=== PATIENT | female | born 1995 | race American Indian/Alaskan Native ===

== ENCOUNTER 2017-10-22 21:01 | Inpatient (IN) | payer MEDICAID ==
[2017-10-22] MEDS ORDERED: PITOCin/NS 20 UNIT/1000ML DRIP 20,000 MILLIUNITS/1,000 ML BAG IV ONE (21:08)
[2017-10-22] MEDS ORDERED: XYLOCAINE 2% INFILTRATI ONE ×2 (21:09→21:28)
--- NOTE | 2017-10-22 21:22 | History and Physical Report ---
History of Present Illness Date of examination: 10/22/17 Date of admission: 10/22/17 21:04 Chief complaint: Labor History of present illness: Pt is a 22yo BF EDC 10/29/17; EGA 39 0/7 weeks presents to L&D complaining of SROM clear fluid since 10AM with RUC's q 2-3 mins and now Cx 10/ 100/V/+2 She received care at [facility]; however records are not available and GBS is unknown. Past History Past Medical History: no pertinent history Past Surgical History: no surgical history Family/Genetic History: none Social history: no significant social history, single - Obstetrical History Expected Date of Delivery: 10/29/17 Actual Gestation: 39 Week(s) 0 Day(s) Medications and Allergies Allergies Allergy/AdvReac Type Severity Reaction Status Date / Time tramadol Allergy Unknown Verified 10/22/17 21:34 Review of Systems All systems: negative - Vital Signs Vital signs: Vital Signs Pulse BP 79 138/82 10/22/17 21:16 10/22/17 21:16 Temp Pulse Resp BP Pulse Ox 79 138/82 10/22/17 21:16 10/22/17 21:16 - Physical Exam Breasts: Positive: deferred Cardiovascular: Regular rate Lungs: Positive: Clear to auscultation Abdomen: Positive: normal appearance Genitourinary (Female): Positive: normal external genitalia Vagina: Positive: normal moisture Uterus: Positive: enlarged Extremities: Positive: normal - Obstetrical FHR: category 1 Uterine Contraction Monitor Mode: External Cervical Dilatation: 10 Cervical Effacement Percentage: 100 station: +2 Uterine Contraction Pattern: Regular Uterine Tone Measurement Phase: Contraction Uterine Contraction Intensity: Strong/Firm Results All other labs normal. Assessment and Plan - Patient Problems (1) 39 weeks gestation of Onset Date: 10/22/17 Current Visit: Yes Status: Acute Plan to address problem: A: IUP @ 39 0/7 weeks in labor P: Admit to L&D for imminent delivery Will obtain records tomorrow. (2) Precipitate labor Onset Date: 10/22/17 Current Visit: Yes Status: Acute
--- NOTE | 2017-10-22 21:27 | Procedure Note ---
OB Delivery Note - Delivery Date of Delivery: 10/22/17 Surgeon: ZANDER GARCIA Estimated blood loss: other (150cc) - Vaginal Delivery presentation: vertex Delivery position: OA Intrapartum events: none, precipitous labor- <3hr Delivery induction: none Delivery augmentation: rupture of membranes Delivery monitor: external FHT, external uterine Route of delivery: Delivery placenta: spontaneous Delivery cord: nuchal cord, 3 umbilical vessels Episiotomy: none Delivery laceration: none Anesthesia: none Delivery comments: delivered OA and placed on Mom's chest for [id number] bonding and delayed cord clamping. - Infant A at 1 minute: 8 at 5 minutes: 9 Infant Gender: Male (3237gms)
[2017-10-22] MEDS ORDERED: ePHEDrine SULFATE IV PRN (21:28)
[2017-10-22] MEDS ORDERED: BRETHINE SUB-Q PRN (21:28)
[2017-10-22] MEDS ORDERED: MINERAL OIL PO PRN (21:28)
[2017-10-22] MEDS ORDERED: BRETHINE IVP PRN (21:28)
[2017-10-22] MEDS ORDERED: TUCKS PAD TP PRN (21:30)
[2017-10-22] MEDS ORDERED: DULCOLAX PR PRN (21:30)
[2017-10-22] MEDS ORDERED: NORCO 5/325 PO PRN (21:30)
[2017-10-22] MEDS ORDERED: ZOFRAN IV PRN (21:30)
[2017-10-22] MEDS ORDERED: PHENERGAN PO PRN (21:30)
[2017-10-22] MEDS ORDERED: BENADRYL PO PRN (21:30)
[2017-10-22] MEDS ORDERED: MILK OF MAGNESIA PO PRN (21:30)
[2017-10-22] MEDS ORDERED: PHENERGAN PR PRN (21:30)
[2017-10-22] MEDS ORDERED: TYLENOL PO PRN (21:30)
[2017-10-22] MEDS ORDERED: LANSINOH TP PRN (21:30)
[2017-10-22] MEDS ORDERED: PITOCin/NS 30 UNIT/500ML 30 UNITS/500 ML BAG IV SCH (22:00)
[2017-10-22] MEDS ORDERED: PITOCin/NS 20 UNIT/1000ML DRIP 20 UNITS/1,000 ML BAG IV SCH ×2 (22:00)
[2017-10-22] MEDS ORDERED: SODIUM CHLORIDE FLUSH SYRINGE 10 ML IV NR (22:00)
[2017-10-22] MEDS ORDERED: LACTATED RINGERS 1,000 ML IV SCH (22:00)
[2017-10-22 22:15] LABS: Hematocrit 38.2 % (30.3-42.9); Hemoglobin 12.5 gm/dl (10.1-14.3); Mean Corpuscular HGB Conc 33 % (30-34); Mean Corpuscular Hemoglobin 28 pg (28-32); Mean Corpuscular Volume 85 fl (79-97); Platelet Count 193 K/mm3 (140-440); Red Blood Count 4.47 M/mm3 (3.65-5.03); Red Cell Distribution Width 15.5 % (13.2-15.2)
[2017-10-22 22:43] LABS: HIV-1 Antigen p24 Non React (Non React); HIVR-1/2 Ab Non React (Non React)
[2017-10-22 22:51] LABS: Basophils % (Manual) 0 % (0.0-1.8); Blastocytes % (Manual) 0 %; Eosinophils % (Manual) 0 % (0.0-4.3); RBC Morphology Normal
[2017-10-22 22:52] LABS: Diff Status Complete
[2017-10-22] MEDS: MOTRIN PO SCH (23:44)
[2017-10-23 02:47] LABS: Urine Drugs of Abuse Note Disclamer
[2017-10-23 03:08] LABS: Bilirubin,Urine NEG (Negative); Blood,Urine LG (Negative); Ketones,Urine 20 mg/dL (Negative); Leukocyte Esterase,Urine SM (Negative); Nitrite,Urine NEG (Negative); Urobilinogen,Urine < 2.0 mg/dL (<2.0)
[2017-10-23 03:12] LABS: RBC,Urine > 182.0 /HPF (0.0-6.0); WBC,Urine < 1.0 /HPF (0.0-6.0)
[2017-10-23] MEDS ORDERED: BOOSTRIX IM ONE (06:00)
[2017-10-23] MEDS ORDERED: M-M-R II VACCINE SUB-Q ONE (06:00)
[2017-10-23] MEDS: MOTRIN PO SCH ×3 (06:18→17:55)
--- NOTE | 2017-10-23 09:19 | Progress Note ---
Assessment and Plan - Patient Problems (1) 39 weeks gestation of Onset Date: 10/22/17 Current Visit: Yes Status: Resolved (2) Precipitate labor Onset Date: 10/22/17 Current Visit: Yes Status: Resolved (3) (normal spontaneous vaginal delivery) Onset Date: 10/23/17 Current Visit: Yes Status: Resolved Plan to address problem: A: S/P - PPD #1 Doing well P: May go home tomorrow Subjective - Subjective Date of service: 10/23/17 Principal diagnosis: s/p - PPD #1 Interval history: Pt is feeling well without complaints. Bleeding improved. Patient reports: appetite normal, voiding normally, pain well controlled, flatus , ambulating normally [place]: doing well, bottle feeding Objective - Vital Signs Latest vital signs: Vital Signs Temp Pulse Resp BP BP 10/23/17 04:15 98.6 F 71 18 112/68 10/23/17 00:00 98.6 F 79 18 106/64 10/22/17 23:44 18 10/22/17 23:16 59 L 125/72 10/22/17 23:01 63 139/79 10/22/17 22:46 76 125/80 10/22/17 22:31 72 132/78 10/22/17 22:16 60 130/74 10/22/17 22:01 65 134/79 10/22/17 21:46 74 142/84 10/22/17 21:31 78 143/90 10/22/17 21:28 72 140/85 10/22/17 21:16 79 138/82 Intake and Output 10/22/17 10/23/17 10/23/17 22:59 06:59 14:59 Output Total 2200 Balance -2200 Output: Urine 2200 Void 2200 Other: Total, Output Amount 800 # Voids Void 1 Weight 117.027 kg Estimated Blood Loss 100 - Exam Breasts: Present: deferred Cardiovascular: Present: Regular rate Lungs: Present: Clear to auscultation Abdomen: Present: normal appearance, soft Uterus: Present: normal, firm, fundal height below umbilicus Extremities: Present: normal - Labs Labs: Abnormal lab results 10/22/17 Range/Units 21:43 RDW 15.5 H (13.2-15.2) % Lymphocytes % (Manual) 39.0 H (13.4-35.0) % Laboratory Tests 10/22/17 10/22/17 10/22/17 21:43 21:43 21:43 WBC 10.0 RBC 4.47 Hgb 12.5 Hct 38.2 MCV 85 MCH 28 MCHC 33 RDW 15.5 H Plt Count 193 Lymph # Campus Coordinator Add Manual Diff Complete Total Counted 100 Seg Neuts % (Manual) 54.0 Band Neutrophils % 0 Lymphocytes % (Manual) 39.0 H Reactive Lymphs % (Man) 0 Monocytes % (Manual) 7.0 Eosinophils % (Manual) 0 Basophils % (Manual) 0 Metamyelocytes % 0 Myelocytes % 0 Promyelocytes % 0 Blast Cells % 0 Nucleated RBC % Not Reportable Seg Neutrophils # Man 5.4 Band Neutrophils # 0.0 Lymphocytes # (Manual) 3.9 Abs React Lymphs (Man) 0.0 Monocytes # (Manual) 0.7 Eosinophils # (Manual) 0.0 Basophils # (Manual) 0.0 Metamyelocytes # 0.0 Myelocytes # 0.0 Promyelocytes # 0.0 Blast Cells # 0.0 WBC Morphology Not Reportable Hypersegmented Neuts Not Reportable Hyposegmented Neuts Not Reportable Hypogranular Neuts Not Reportable Smudge Cells Not Reportable Toxic Granulation Not Reportable Toxic Vacuolation Not Reportable Dohle Bodies Not Reportable Pelger-Huet Anomaly Not Reportable Negin Rods Not Reportable Platelet Estimate Appears normal Clumped Platelets Not Reportable Plt Clumps, EDTA Not Reportable Large Platelets Not Reportable Giant Platelets Not Reportable Platelet Satelliting Not Reportable Plt Morphology Comment Not Reportable RBC Morphology Normal Dimorphic RBCs Not Reportable Polychromasia Not Reportable Hypochromasia Not Reportable Poikilocytosis Not Reportable Anisocytosis Not Reportable Microcytosis Not Reportable Macrocytosis Not Reportable Spherocytes Not Reportable Pappenheimer Bodies Not Reportable Sickle Cells Not Reportable Target Cells Not Reportable Tear Drop Cells Not Reportable Ovalocytes Not Reportable Helmet Cells Not Reportable [place] Bodies Not Reportable [place] Rings Not Reportable [place] Cells Not Reportable Bite Cells Not Reportable Crenated Cell Not Reportable Elliptocytes Not Reportable Acanthocytes (Spur) Not Reportable Rouleaux Not Reportable Hemoglobin C Crystals Not Reportable Schistocytes Not Reportable Malaria parasites Not Reportable Sickle Cell Screen Pascual Bodies Not Reportable Hem Pathologist Commnt No Urine Color Urine Turbidity Urine pH Ur Specific [place] Urine Protein Urine Glucose (UA) Urine Ketones Urine Blood Urine Nitrite Urine Bilirubin Urine Urobilinogen Ur Leukocyte Esterase Urine WBC (Auto) Urine RBC (Auto) Urine Opiates Screen Urine Methadone Screen Ur Barbiturates Screen Ur Phencyclidine Scrn Ur Amphetamines Screen U Benzodiazepines Scrn Urine Cocaine Screen U Marijuana (THC) Screen Drugs of Abuse Note Hep Bs Antigen Non-reactive HIV 1&2 Antibody Rapid HIV P24 Antigen Blood Type O POSITIVE Antibody Screen Negative 10/22/17 10/22/17 10/22/17 21:43 Unknown Unknown WBC RBC Hgb Hct MCV MCH MCHC RDW Plt Count Lymph # Add Manual Diff Total Counted Seg Neuts % (Manual) Band Neutrophils % Lymphocytes % (Manual) Reactive Lymphs % (Man) Monocytes % (Manual) Eosinophils % (Manual) Basophils % (Manual) Metamyelocytes % Myelocytes % Promyelocytes % Blast Cells % Nucleated RBC % Seg Neutrophils # Man Band Neutrophils # Lymphocytes # (Manual) Abs React Lymphs (Man) Monocytes # (Manual) Eosinophils # (Manual) Basophils # (Manual) Metamyelocytes # Myelocytes # Promyelocytes # Blast Cells # WBC Morphology Hypersegmented Neuts Hyposegmented Neuts Hypogranular Neuts Smudge Cells Toxic Granulation Toxic Vacuolation Dohle Bodies Pelger-Huet Anomaly Negin Rods Platelet Estimate Clumped Platelets Plt Clumps, EDTA Large Platelets Giant Platelets Platelet Satelliting Plt Morphology Comment RBC Morphology Dimorphic RBCs Polychromasia Hypochromasia Poikilocytosis Anisocytosis Microcytosis Macrocytosis Spherocytes Pappenheimer Bodies Sickle Cells Target Cells Tear Drop Cells Ovalocytes Helmet Cells [place] Bodies [place] Rings [place] Cells Bite Cells Crenated Cell Elliptocytes Acanthocytes (Spur) Rouleaux Hemoglobin C Crystals Schistocytes Malaria parasites Sickle Cell Screen Negative Pascual Bodies Hem Pathologist Commnt Urine Color Red Urine Turbidity Clear Urine pH 6.0 Ur Specific [place] 1.026 Urine Protein 100 mg/dl Urine Glucose (UA) Neg Urine Ketones 20 Urine Blood Lg Urine Nitrite Neg Urine Bilirubin Neg Urine Urobilinogen < 2.0 Ur Leukocyte Esterase Sm Urine WBC (Auto) < 1.0 Urine RBC (Auto) > 182.0 Urine Opiates Screen Presumptive negative Urine Methadone Screen Presumptive negative Ur Barbiturates Screen Presumptive negative Ur Phencyclidine Scrn Presumptive negative Ur Amphetamines Screen Presumptive negative U Benzodiazepines Scrn Presumptive negative Urine Cocaine Screen Presumptive negative U Marijuana (THC) Screen Presumptive negative Drugs of Abuse Note Disclamer Hep Bs Antigen HIV 1&2 Antibody Rapid Non react HIV P24 Antigen Non react Blood Type Antibody Screen 10/23/17 09:34 WBC RBC Hgb 10.9 Hct 33.2 MCV MCH MCHC RDW Plt Count Lymph # Add Manual Diff Total Counted Seg Neuts % (Manual) Band Neutrophils % Lymphocytes % (Manual) Reactive Lymphs % (Man) Monocytes % (Manual) Eosinophils % (Manual) Basophils % (Manual) Metamyelocytes % Myelocytes % Promyelocytes % Blast Cells % Nucleated RBC % Seg Neutrophils # Man Band Neutrophils # Lymphocytes # (Manual) Abs React Lymphs (Man) Monocytes # (Manual) Eosinophils # (Manual) Basophils # (Manual) Metamyelocytes # Myelocytes # Promyelocytes # Blast Cells # WBC Morphology Hypersegmented Neuts Hyposegmented Neuts Hypogranular Neuts Smudge Cells Toxic Granulation Toxic Vacuolation Dohle Bodies Pelger-Huet Anomaly Negin Rods Platelet Estimate Clumped Platelets Plt Clumps, EDTA Large Platelets Giant Platelets Platelet Satelliting Plt Morphology Comment RBC Morphology Dimorphic RBCs Polychromasia Hypochromasia Poikilocytosis Anisocytosis Microcytosis Macrocytosis Spherocytes Pappenheimer Bodies Sickle Cells Target Cells Tear Drop Cells Ovalocytes Helmet Cells [place] Bodies [place] Rings [place] Cells Bite Cells Crenated Cell Elliptocytes Acanthocytes (Spur) Rouleaux Hemoglobin C Crystals Schistocytes Malaria parasites Sickle Cell Screen Pascual Bodies Hem Pathologist Commnt Urine Color Urine Turbidity Urine pH Ur Specific [place] Urine Protein Urine Glucose (UA) Urine Ketones Urine Blood Urine Nitrite Urine Bilirubin Urine Urobilinogen Ur Leukocyte Esterase Urine WBC (Auto) Urine RBC (Auto) Urine Opiates Screen Urine Methadone Screen Ur Barbiturates Screen Ur Phencyclidine Scrn Ur Amphetamines Screen U Benzodiazepines Scrn Urine Cocaine Screen U Marijuana (THC) Screen Drugs of Abuse Note Hep Bs Antigen HIV 1&2 Antibody Rapid HIV P24 Antigen Blood Type Antibody Screen
[2017-10-23] MEDS ORDERED: PRENATAL VITAMIN PO SCH (10:00)
[2017-10-23 10:05] LABS: Hematocrit 33.2 % (30.3-42.9); Hemoglobin 10.9 gm/dl (10.1-14.3)
--- NOTE | 2017-10-23 11:00 | Discharge Summary ---
Providers - Providers Date of Admission: 10/22/17 21:04 Date of discharge: 10/24/17 Attending physician: ZANDER GARCIA Primary care physician: ZANDER GARCIA Hospitalization Reason for admission: active labor, rupture of membranes, IUP at term Delivery: Episiotomy: none Laceration: none Other procedures: none complications: none Discharge diagnosis: IUP at term delivered [place] baby: male Hospital course: Unremarkable. Condition at discharge: Good Disposition: DC-01 TO HOME OR SELFCARE - Discharge Diagnoses (1) 39 weeks gestation of Status: Resolved (2) Precipitate labor Status: Resolved (3) (normal spontaneous vaginal delivery) Status: Resolved Plan - Discharge Medications Prescriptions: Ferrous Sulfate [Feosol 325 MG tab] 325 mg PO BID #60 tablet Ibuprofen [Motrin 600 MG tab] 600 mg PO Q6H #30 tablet Vit-Fe Fumar-FA [ Vitamin] 1 each PO QDAY #30 tablet - Provider Discharge Summary Activity: routine, no sex for 6 weeks, no heavy lifting 4 weeks, no strenuous exercise Diet: routine Instructions: routine Additional instructions: [] Smoking cessation referral if applicable(refer to patient education folder for contact #) [] Refer to [facility]'s [facility] Book[facility] Call your doctor immediately for: * Fever > 100.5 * Heavy vaginal bleeding ( >1 pad per hour) * Severe persistent headache * Shortness of breath * Reddened, hot, painful area to leg or breast * Drainage or odor from incision. * Keep incision clean and dry at all times and follow doctor's instructions regarding bathing/showering - Follow up plan Follow up: ZANDER GARCIA MD [Primary Care Provider] - 6 Weeks
[2017-10-23] MEDS: COLACE PO SCH ×2 (17:55→22:30)
[2017-10-23] MEDS: FEOSOL PO SCH ×2 (17:55→22:29)
[2017-10-24] MEDS: MOTRIN PO SCH ×3 (00:34→12:40)
[2017-10-24] MEDS: COLACE PO SCH (12:40)
[2017-10-24] MEDS: FEOSOL PO SCH (12:40)
[2017-10-24 19:16] VITALS: BP 137/80
== END 2017-10-24 17:35 | disposition home or self-care (01) | DRG 775 ==
LOC: TRG 21:01 → LD 21:03 → TRG 21:04 → OB 23:57
PROVIDERS: ADMIT Obstetrics & Gynecology; ATTEND Obstetrics & Gynecology
PROC: 10E0XZZ Delivery of Products of Conception, External Approach (ICD-10-PCS; principal; 2017-10-22)
PROC: 3E0234Z Introduction of Serum, Toxoid and Vaccine into Muscle, Percutaneous Approach (ICD-10-PCS; 2017-10-23)
DX: O62.3 Precipitate labor (principal); Z3A.39 39 weeks gestation of pregnancy; Z37.0 Single live birth; Z23 Encounter for immunization; Z88.5 Allergy status to narcotic agent; O69.81X0 Labor and delivery complicated by cord around neck, without compression, not applicable or unspecified
CPT/HCPCS: 36415; 80307; 81001; 85007; 85014; 85018; 85025; 85660; 86592; 86706; 86850; 86900; 86901; 87806; J2590

== ENCOUNTER 2018-02-26 00:22 | Emergency (ER) | payer MEDICAID ==
[2018-02-26 01:16] LABS: Basophils % (Auto) 0.4 % (0.0-1.8); Eosinophils # (Auto) 0.1 K/mm3 (0.0-0.4); Eosinophils % (Auto) 1.9 % (0.0-4.3); Hemoglobin 11.9 gm/dl (10.1-14.3); Lymphocytes # (Auto) 2.2 K/mm3 (1.2-5.4); Lymphocytes % (Auto) 43.4 % (13.4-35.0); Mean Corpuscular HGB Conc 32 % (30-34); Mean Corpuscular Hemoglobin 27 pg (28-32); Mean Corpuscular Volume 84 fl (79-97); Monocytes # (Auto) 0.4 K/mm3 (0.0-0.8); Monocytes % (Auto) 6.9 % (0.0-7.3); Platelet Count 216 K/mm3 (140-440); Red Blood Count 4.43 M/mm3 (3.65-5.03); Red Cell Distribution Width 14.6 % (13.2-15.2)
[2018-02-26 02:34] LABS: Bilirubin,Urine NEG (Negative); Blood,Urine NEG (Negative); Color,Urine Yellow (Yellow); Mucus,Urine FEW /HPF; Protein,Urine <15 mg/dL mg/dL (Negative); Urobilinogen,Urine < 2.0 mg/dL (<2.0)
--- NOTE | 2018-02-26 04:12 | Emergency Department Report ---
HPI - General Chief Complaint: Vaginal Bleeding Time Seen by Provider: 02/26/18 03:23 - HPI HPI: The patient's 22-year-old female presents for evaluation of abdominal pain vaginal bleeding. The patient reports constant vaginal bleeding and abdominal pain for the past 2 days, crampy in quality, concentrated to the lower abdomen, worsened with position changes. The patient denies trauma to the abdomen or pelvis, fever, chills, night sweats, diarrhea, blood in the stool, dark tarry stool, dysuria, hematuria, flank pain, genital discharge, inability to pass flatus. ED Past Medical Hx - Past Medical History Previous Medical History?: No Hx Hypertension: No Hx Congestive Heart Failure: No Hx Diabetes: No Hx Deep Vein Thrombosis: No Hx Renal Disease: No Hx Sickle Cell Disease: No Hx Seizures: No Hx Asthma: No Hx COPD: No Hx HIV: No - Surgical History Past Surgical History?: No - Social History Smoking Status: Never Smoker - Medications Home Medications: Home Medications Medication Instructions Recorded Confirmed Last Taken Type Ferrous Sulfate [Feosol 325 MG tab] 325 mg PO BID #60 tablet 10/23/17 Unknown Rx Ibuprofen [Motrin 600 MG tab] 600 mg PO Q6H #30 tablet 10/23/17 Unknown Rx Vit-Fe Fumar-FA [ 1 each PO QDAY #30 tablet 10/23/17 Unknown Rx Vitamin] medroxyPROGESTERone ACETATE 5 mg PO QDAY #5 tablet 02/26/18 Unknown Rx [Provera] traMADol [Ultram 50 MG tab] 50 mg PO Q6HR PRN #15 tablet 02/26/18 Unknown Rx ED Review of Systems ROS: Stated complaint: VAG BLEEDING Other details as noted in HPI Constitutional: denies: fever ENT: denies: throat or neck pain Respiratory: denies: cough, shortness of breath Cardiovascular: denies: chest pain Endocrine: denies unexplained weight loss or gain Gastrointestinal: reports : abdominal pain, nausea Genitourinary: Reports vaginal bleeding denies: dysuria Musculoskeletal: denies: leg swelling Skin: denies: rash Neurological: denies: headache Hematological/Lymphatic: denies: easy bleeding or easy bruising Psych: denies sadness or hopelessness Physical Exam - Physical Exam Vital Signs: Vital Signs 02/26/18 02/26/18 02/26/18 00:27 00:46 01:49 Temperature 98.2 F 98.2 F Pulse Rate 73 73 Respiratory 16 16 Rate Blood Pressure 116/77 116/77 O2 Sat by Pulse 98 98 100 Oximetry 02/26/18 02/26/18 02/26/18 01:57 02:00 02:16 Temperature 98.5 F Pulse Rate Respiratory Rate Blood Pressure 123/75 123/75 O2 Sat by Pulse 98 99 Oximetry 02/26/18 02/26/18 02/26/18 02:30 02:46 03:00 Temperature Pulse Rate Respiratory Rate Blood Pressure 123/75 123/75 122/66 O2 Sat by Pulse 99 99 98 Oximetry 02/26/18 02/26/18 03:16 03:30 Temperature Pulse Rate Respiratory Rate Blood Pressure 122/66 122/66 O2 Sat by Pulse 98 98 Oximetry Physical Exam: General: well-nourished, well-developed, no acute distress Head: Normocephalic, atraumatic Eyes: normal sclera ENT: Mucous membranes are pink and moist Neck: trachea midline, neck supple, No neck stiffness, no cervical adenopathy Respiratory: Breath sounds equal bilaterally, no wheezing, rales, or rhonchi Cardio: S1 and S2 present, no murmurs, rubs, gallops, capillary refill is brisk Abdomen: Normoactive bowel sounds, soft abdomen, suprapubic tenderness palpation present, no rigidity, no guarding or rebound tenderness Chest WALL/Back: No tenderness to palpation of the chest wall, no CVA tenderness with percussion Musc: No pitting edema Skin: No rash Neuro: no facial drooping, normal speech Psych: Normal affect ED Course Vital Signs 02/26/18 02/26/18 02/26/18 00:27 00:46 01:49 Temperature 98.2 F 98.2 F Pulse Rate 73 73 Respiratory 16 16 Rate Blood Pressure 116/77 116/77 O2 Sat by Pulse 98 98 100 Oximetry 02/26/18 02/26/18 02/26/18 01:57 02:00 02:16 Temperature 98.5 F Pulse Rate Respiratory Rate Blood Pressure 123/75 123/75 O2 Sat by Pulse 98 99 Oximetry 02/26/18 02/26/18 02/26/18 02:30 02:46 03:00 Temperature Pulse Rate Respiratory Rate Blood Pressure 123/75 123/75 122/66 O2 Sat by Pulse 99 99 98 Oximetry 02/26/18 02/26/18 03:16 03:30 Temperature Pulse Rate Respiratory Rate Blood Pressure 122/66 122/66 O2 Sat by Pulse 98 98 Oximetry ED Medical Decision Making - Lab Data Result diagrams: 02/26/18 00:54 - Medical Decision Making The patient was seen and examined by myself. The patient is placed on a oil heater installer and continuous pulse ox. On initial evaluation, the patient was found to be in no distress. Evaluation orders were placed. Breast exam was performed under supervision of the nurse, ALONZO Bertrand, and was negative for any findings concerning for abscess or cellulitis. The patient was given pain medicine. Lab results are reassuring including non-concerning levels of RBC, hemoglobin, hematocrit, and negative test. The patient was reevaluated and reported that their symptoms were improved. As the patient has not concerning levels of RBC, hemoglobin, hematocrit, with normal vital signs, and there is no evidence of severe bleeding requiring transfusion or other emergent management at this time, the patient is stable for discharge with outpatient follow-up. The patient is given follow-up and return instructions. The patient expressed understanding and agreed with the plan. The patient is discharged in stable condition. Critical care attestation.: If time is entered above; I have spent that time in minutes in the direct care of this critically ill patient, excluding procedure time. ED Disposition Clinical Impression: Abnormal vaginal bleeding, Acute suprapubic pain Disposition: -01 TO HOME OR SELFCARE Is pt being admited?: No Does the pt Need Aspirin: No Condition: Stable Instructions: Dysfunctional Uterine Bleeding (ED), Menorrhagia (ED), Dysmenorrhea (ED) Referrals: [facility] [Provider Group] - 3-5 Days LIZZY MADSEN MD [Staff Physician] - 3-5 Days Time of Disposition: 04:08
[2018-02-26 04:35] VITALS: BP 130/74
== END 2018-02-26 04:35 | disposition home or self-care (01) ==
LOC: ED 00:22
DX: N93.8 Other specified abnormal uterine and vaginal bleeding (principal)
CPT/HCPCS: 36415; 81001; 84702; 85025; 86850; 86900; 86901; 99283